=== PATIENT | male | born 1995 | race Caucasian/White ===

== ENCOUNTER 2021-10-10 12:52 | Emergency (ER) | payer BC, SELFPAY ==
--- NOTE | ~2021-10-10 | XR_ITS ---
XR chest 2V DATE: 10/10/2021 14:28 INDICATION: Weakness. Medical clearance. TECHNIQUE: 2 views COMPARISON: None FINDINGS: Normal heart size. No hilar or mediastinal enlargement. There is old pulmonary granulomatou s disease. No pulmonary infiltrate or consolidation, pleural effusion or pulmonary vascular congestio n or pneumothorax. Included skeletal structures are unremarkable. IMPRESSION: No active cardiopulmonary disease Reviewed, dictated and finalized at location A. T TIME NANNY
[2021-10-10 13:40] VITALS: BP 138/86; PULSE 72; RESP 14; TEMP 36.7; O2SAT 100
--- NOTE | 2021-10-10 13:49 | ED.PSYCH ---
HPI - Psych General Chief Complaint: Psychiatric Symptoms Stated Complaint: Mental Health Time Seen by Provider: 10/10/21 13:55 Source: patient History of Present Illness HPI Narrative: patient presents with some sensation of status depression is having difficulty at at home has had suicidal ideations in the past currently not suicidal not homicidal. Mental health advised patient to come to the ER to be evaluated, currently there is no chest pain no shortness of breath no nausea vomiting no abdominal pain no flank pain no fever or chills. complaint: suicidal ideation Onset (ago): day(s) Duration: constant History of same: Yes Relieving factors: none Exacerbating factors: none Context: recent alcohol abuse Associated psychiatric symptoms: depression and suicidal ideation Associated symptoms: denies other symptoms Related Data Home Medications Medication Instructions Recorded Confirmed No Home Medications 10/10/21 10/10/21 Allergies Allergy/AdvReac Type Severity Reaction Status Date / Time No Known Allergies Allergy Verified 10/10/21 14:13 Review of Systems Review of Systems: All systems reviewed & are unremarkable except as noted in HPI and below PMFSH Past Medical History Medical History Depression Social History Social History Substance use type: does not use Exam Const: General: healthy appearing, no acute distress and alert Orientation/consciousness: patient oriented x3 Limitations: altered mental status HENMT: Head: normal to inspection Eyes: Conjunctivae: conjunctivae normal Pupils: Equal, round and reactive pupils present Direct Ophthalmoscopy: no photophobia Neck: Neck: normal visual inspection, no lymphadenopathy and no meningeal signs Chest: Chest palpation & inspection: normal inspection of the chest Resp: Effort & Inspection: normal respiratory effort Auscultation: clear to auscultation bilaterally Cardio: Rate: regular rate Rhythm: regular rhythm GI: GI Palp: Yes Soft to palpation Urinary Catheter: Urinary Catheter: patent and draining Back/Spine/Pelvis: Back: no CVA tenderness Skin: General skin exam: normal color Rashes: no rashes Neuro: General: patient oriented x3, moves all extremities, no meningeal signs, no focal motor deficits and CN's II-XI intact bilaterally Extrem: General: normal to inspection and no pedal edema Psych: Appearance: grossly normal Affect: Sad affect present Attitude: cooperative Thought content: Yes Depressive thoughts present Course Course Emergency Course: EKG labs and urinalysis reviewed with patient, patient evaluated by mental health worker. mental health evaluation, patient to be transferred to [facility] for further evaluation and treatment. Critical Care Time Critical Care Time Critical Care Time: No Discharge Plan Discharge Clinical Impression: Suicidal ideations Depression Qualifiers: Depression Type: major depressive disorder Major depression recurrence: recurrent Active/Remission status: currently active Major depression episode severity: severe Psychotic features: without psychotic features Qualified Code(s): F33.2 - Major depressive disorder, recurrent severe without psychotic features Patient Disposition: Psychiatric Hosp Condition: Stable Prescriptions: No Action No Home Medications RF: 0 Follow-up/Referrals: UNKNOWN,DOCTOR [Primary Care Provider] - Time of Disposition: 16:52
--- NOTE | 2021-10-10 13:50 | ECG_ITS ---
Measurements Intervals [place] Rate: 67 P: 69 WA: 153 QRS: 96 QRSD: 100 T: 6 QT: 386 QTc: 408 Interpretive Statements SINUS RHYTHM WITH MARKED SINUS ARRHYTHMIA RIGHT AXIS DEVIATION DELAYED PRECORDIAL R/S TRANSITION MINIMAL Q WAVES- INFERIOR LEADS BORDERLINE ST-T WAVE ABNORMALITY- INFERIOR LEADS BORDERLINE ECG Electronically Signed On 10-10-2021 14:17:39 APARTMENT LEASING AGENT by Raymond Silvestre D.O.
[2021-10-10 14:17] LABS: Basophils Absolute Auto 0.07 K/mm3 (0.00-0.10); Basophils Percent Auto 0.8 % (0.0-1.0); Eosinophils Absolute Auto 0.26 K/mm3 (0.02-0.50); Eosinophils Percent Auto 3.1 % (1.0-6.0); Hemoglobin 16.6 g/dL (14.0-18.0); Immature Granulocyte Absolute 0.01 K/mm3 (0.00-0.00); Immature Granulocyte Percent A 0.1 % (0.0-0.0); Lymphocytes Absolute Auto 2.05 K/mm3 (1.10-4.50); Lymphocytes Percent Auto 24.2 % (18.0-42.0); Mean Corpuscular HGB Conc 32.5 g/dL (32.0-36.0); Mean Corpuscular Hemoglobin 28.3 pg (27.0-31.0); Mean Corpuscular Volume 86.9 fL (78.0-102.0); Mean Platelet Volume 10.1 fl (8.7-11.0); Monocytes Absolute Auto 0.84 K/mm3 (0.10-0.90); Monocytes Percent Auto 9.9 % (2.0-11.0); Neutrophils Absolute Auto 5.2 K/mm3 (1.7-7.2); Neutrophils Percent Auto 61.9 % (50.0-70.0); Platelet Count Result 262 K/mm3 (150-420); Red Blood Count 5.87 M/mm3 (4.70-6.10); Red Cell Distribution Width 13.8 % (11.6-14.4); White Blood Count 8.5 K/mm3 (4.8-10.8)
[2021-10-10 14:21] LABS: Appearance Urine Clear (Clear); Bilirubin Urine Negative (Negative); Color Urine Yellow (Yellow); Glucose Urine UA Negative (Negative); Ketones Urine Trace (Negative); Leukocyte Esterase Ur Negative (Negative); Nitrate Urine Negative (Negative); Protein Urine Negative (Negative); Specific Grav Ur >= 1.030 (1.010-1.020); Urobilinogen Urine 0.2 mg/dL (0.2-1.0); pH Urine 5.5 (5.0-8.0)
[2021-10-10 14:27] LABS: Amphetamine Screen Urine Negative (Negative); Barbiturate Screen Urine Negative (Negative); Benzodiazepines Screen Urine Negative (Negative); Cannabinoid Screen Urine Positive (Negative); Cocaine Screen Urine Negative (Negative); Methadone Screen Urine Negative (Negative); Opiate Screen Urine Negative (Negative); Phencyclidine Screen Urine Negative (Negative)
[2021-10-10 14:29] LABS: Add Urine Microscopic? YES; Blood Urine Trace-lysed (Negative)
[2021-10-10 14:30] LABS: Bacteria Urine Trace /hpf; Mucus Urine Moderate /lpf; Other Sediment Urine Spermatazoa /hpf; RBC Urine None seen /hpf (0-2); Squamous Epithelial Cell Urine Rare /hpf (Few); WBC Urine None seen /hpf (0-3)
[2021-10-10 14:45] LABS: Alanine Aminotransferase 36 U/L (16-63); Albumin Level 4.3 g/dL (3.4-5.0); Alkaline Phosphatase 74 U/L (46-116); Anion Gap 14 mmol/L (8-16); Aspartate Amino Transferase 27 U/L (15-37); Bilirubin,Total 0.6 mg/dL (0.00-1.00); Blood Urea Nitrogen 18 mg/dL (7-18); Calcium 9.9 mg/dL (8.5-10.1); Carbon Dioxide 27 mmol/L (21-32); Chloride 101 mmol/L (98-108); Estimated Glomerular Filt Rate > 60; Glucose 103 mg/dL (70-99); Osmolality Calculated 295 mOsm/kg (285-295); Potassium 3.5 mmol/L (3.5-5.1); Salicylate 0.6 mg/dL (2.8-20.0); Sodium 142 mmol/L (136-145); Thyroid Stimulating Hormone 3.73 uIU/mL (0.36-3.74); Total Protein 7.8 g/dL (6.4-8.2)
--- NOTE | 2021-10-10 14:46 | PC.NURSE ---
1415 MOTHER AT BEDSIDE. PT HAS BEEN CHANGED INTO SCRUBS WITH [employer] SECURED. [address] IN WITH PT AT THIS TIME. CAMERA ON AT THE NURSING STATION.
[2021-10-10 14:49] LABS: Acetaminophen < 2 ug/mL (10-30); Ethanol < 3 mg/dL (0-6)
[2021-10-10 14:54] LABS: SARS-CoV-2 RNA PCR Negative (Negative)
--- NOTE | 2021-10-10 16:21 | PC.NURSE ---
report given to nurse neal at [facility] . pt resting quietly. awaiting return call from [facility] outpatient program coordinator.
[2021-10-10 16:59] VITALS: BP 118/62; PULSE 71; RESP 14; TEMP 36.5; O2SAT 97
== END 2021-10-10 17:20 ==
PROVIDERS: Emergency Provider Emergency Medicine
DX: R45.851 Suicidal ideations (principal); F33.2 Major depressive disorder, recurrent severe without psychotic features
CPT/HCPCS: 36415; 71046; 80053; 80307; 81001; 84443; 85025; 93005; 99285; C9803; U0003; U0005

== ENCOUNTER 2022-01-27 16:04 | Emergency (ER) | payer BC, SELFPAY ==
--- NOTE | ~2022-01-27 | XR_ITS ---
EXAMINATION: XR chest 1V portable 01/27/2022 16:51 INDICATION: Fever and body aches PROCEDURE: AP portable chest COMPARISON: 10/10/2021 FINDINGS: The lungs are clear. The cardiomediastinal silhouette is within normal limits. There are no pleural effusions. There is no pneumothorax suspected. There are calcified granulomas of the vinny gs. IMPRESSION: 1: NO ACUTE CARDIOPULMONARY DISEASE. Reviewed, dictated and finalized at location A.
[2022-01-27 16:10] VITALS: BP 140/81; PULSE 114; RESP 16; TEMP 37.5; O2SAT 94
[2022-01-27 16:47] LABS: Hematocrit 47.7 % (40.0-54.0); Hemoglobin 15.9 g/dL (14.0-18.0); Mean Corpuscular HGB Conc 33.3 g/dL (32.0-36.0); Mean Platelet Volume 10.3 fl (8.7-11.0); Platelet Count Result 251 K/mm3 (150-420); Red Blood Count 5.48 M/mm3 (4.70-6.10); Red Cell Distribution Width 15.1 % (11.6-14.4)
[2022-01-27 16:49] LABS: White Blood Count 20.5 K/mm3 (4.8-10.8)
--- NOTE | 2022-01-27 16:59 | WPDEDEXPGENP ---
HPI - General Ped General Chief complaint: Fever Stated complaint: high fever 103.4 History of Present Illness HPI narrative: Dann is a previously healthy 26M that presented to the ED with a fever, body aches and fatigue. It started this morning and became worse. He has had a few episodes of non-bloody vomiting as well. He has also had a cough but no SOB. Of note he was on vacation in [place] last weekend and drank ethanol excessively (15-18 shots per day). Related Data Home Medications Medication Instructions Recorded Confirmed albuterol 90 mcg/actuation aerosol 90 mcg inhalation Q6-8H 01/27/22 01/27/22 inhaler Allergies Allergy/AdvReac Type Severity Reaction Status Date / Time No Known Allergies Allergy Verified 01/27/22 16:20 Pediatric Review of Systems Constitutional: Reports fever and chills Eyes: Reports as per HPI ENT: Reports as per HPI Cardiovascular: Denies chest pain or palpitations Respiratory: Reports cough; Denies sputum production Gastrointestinal: Reports nausea and vomiting Genitourinary: Denies dysuria Musculoskeletal: Reports as per HPI Integumentary: Reports as per HPI Neurological: Reports as per HPI Psychiatric: Reports change in energy level Endocrine: Reports fatigue PMFSH Past Medical History Medical History Depression Social History Social History Substance use type: does not use Pediatric Exam General: General appearance: well-appearing, active and well-nourished Head: Head exam: normocephalic, atraumatic and normal inspection Eye: Eye exam: Present normal appearance, PERRL and EOMI ENT: ENT exam: normal exam and mucous membranes dry Neck: Neck exam: Present normal inspection Respiratory: Respiratory exam: Present normal lung sounds bilaterally; Absent respiratory distress or wheezes Cardiovascular: Cardiovascular exam: Present regular rate and normal rhythm; Absent bradycardia Abdominal Exam: Abdominal exam: Present soft; Absent distention or tenderness Extremities Exam: Extremities exam: Present normal inspection Neurological Exam: Neurological exam: Present alert, oriented X3 and CN II-XII intact Course Course Emergency Course: Ordered fluids, labs, CXR and UA. EXAMINATION: XR chest 1V portable 01/27/2022 16:51 INDICATION: Fever and body aches PROCEDURE:? AP portable chest COMPARISON: 10/10/2021 FINDINGS: The lungs are clear.? The cardiomediastinal silhouette is within normal limits.? There are no pleural effusions.? There is no pneumothorax suspected.? There are calcified granulomas of the lungs. IMPRESSION: 1:? NO ACUTE CARDIOPULMONARY DISEASE. Labs showed an elevated white count but were otherwise unremarkable. UA and CXR unremarkable for infection. DDx includes a viral syndrome vs heat exhaustion vs dehydration or all 3 from drinking in the sun all weekend. Vital Signs Vital signs: Vital Signs Temperature 99.5 F 01/27/22 16:10 Pulse Rate 114 H 01/27/22 16:10 Respiratory Rate 16 01/27/22 16:10 Blood Pressure 140/81 01/27/22 16:10 Pulse Oximetry 94 01/27/22 16:10 Oxygen Delivery Room Air 01/27/22 16:10 Temperature 99.9 F H 01/27/22 17:40 Pulse Rate 85 01/27/22 17:40 Respiratory Rate 16 01/27/22 17:40 Blood Pressure 136/66 01/27/22 17:40 Pulse Oximetry 99 01/27/22 17:40 Oxygen Delivery Room Air 01/27/22 17:40 Medical Decision Making Vital Signs Vital Signs: Vital Signs Temperature 99.5 F 01/27/22 16:10 Pulse Rate 114 H 01/27/22 16:10 Respiratory Rate 16 01/27/22 16:10 Blood Pressure 140/81 01/27/22 16:10 Pulse Oximetry 94 01/27/22 16:10 Oxygen Delivery Room Air 01/27/22 16:10 Temperature 99.9 F H 01/27/22 17:40 Pulse Rate 85 01/27/22 17:40 Respiratory Rate 16 01/27/22 17:40 Blood Pressure 136/66 01/27/22 17:40 Pulse Oximetry 99
[2022-01-27] MEDS: SODIUM CHLORIDE 0.9% IV 1,000 ML 999 ML IV CONT (17:02)
[2022-01-27 17:03] LABS: Alanine Aminotransferase 59 U/L (16-63); Albumin Level 3.9 g/dL (3.4-5.0); Alkaline Phosphatase 60 U/L (46-116); Anion Gap 9 mmol/L (8-16); Aspartate Amino Transferase 55 U/L (15-37); Bilirubin,Total 0.5 mg/dL (0.00-1.00); Blood Urea Nitrogen 10 mg/dL (7-18); Calcium 9.3 mg/dL (8.5-10.1); Carbon Dioxide 27 mmol/L (21-32); Chloride 101 mmol/L (98-108); Estimated Glomerular Filt Rate > 60; Glucose 112 mg/dL (70-99); Osmolality Calculated 284 mOsm/kg (285-295); Potassium 3.9 mmol/L (3.5-5.1); Sodium 137 mmol/L (136-145); Total Protein 7.7 g/dL (6.4-8.2)
[2022-01-27 17:11] VITALS: BP 132/77; PULSE 108; RESP 16; TEMP 37.3; O2SAT 97
[2022-01-27 17:21] LABS: Influenza A QL RT-PCR Negative (Negative); Influenza B QL RT-PCR Negative (Negative); SARS-CoV-2 RNA PCR Negative (Negative)
[2022-01-27 17:30] LABS: Band Neutrophils Percent 0 % (0-6); Lymphocytes Absolute Manual 0.82 K/mm3 (1.1-4.5); Lymphocytes Percent Manual 4 % (18-44); Monocytes Absolute Manual 1.02 K/mm3 (0.1-0.90); Monocytes Percent Manual 5 % (3-9); Neutrophils Absolute Manual 18.65 K/mm3 (1.3-6.7); Neutrophils Percent Manual 91 % (46-73); Platelet Estimate Adequate (Adequate); Total Cells Counted 100
[2022-01-27 17:33] LABS: Add Urine Microscopic? YES; Appearance Urine Clear (Clear); Bilirubin Urine Negative (Negative); Blood Urine Negative (Negative); Color Urine Yellow (Yellow); Glucose Urine UA Negative (Negative); Ketones Urine Negative (Negative); Leukocyte Esterase Ur Negative (Negative); Nitrate Urine Negative (Negative); Protein Urine Trace (Negative); Specific Grav Ur 1.015 (1.010-1.020); pH Urine 8.5 (5.0-8.0)
[2022-01-27 17:38] LABS: RBC Urine None seen /hpf (0-2); WBC Urine None seen /hpf (0-3)
[2022-01-27 17:39] LABS: Bacteria Urine Trace /hpf
[2022-01-27 17:40] VITALS: BP 136/66; PULSE 85; RESP 16; TEMP 37.7; O2SAT 99
== END 2022-01-27 18:05 | disposition home or self-care (01) ==
PROVIDERS: Emergency Provider Family Medicine
DX: B34.9 Viral infection, unspecified (principal); Z20.822 Contact with and (suspected) exposure to COVID-19
CPT/HCPCS: 36415; 71045; 80053; 81001; 85025; 87502; 96360; 99283; C9803; J7030; U0003; U0005

== ENCOUNTER 2023-04-03 10:53 | Emergency (ER) | payer BC, SELFPAY ==
--- NOTE | ~2023-04-03 | XR_ITS ---
EXAMINATION: XR chest 2V DATE: 04/03/2023 11:17 INDICATION: Shortness of breath. TECHNIQUE: Frontal and lateral views of the chest were obtained. COMPARISON: Chest single view 01/27/2022 FINDINGS: A calcified right lung nodule and calcified right hilar lymph nodes are consistent with old granulomatous disease. No pleural effusion or pneumothorax. The heart size is normal. IMPRESSION: 1. No acute cardiopulmonary disease. Reviewed, dictated and finalized at location B.
[2023-04-03 10:56] VITALS: BP 148/92; PULSE 94; RESP 20; TEMP 37.3; O2SAT 98
--- NOTE | 2023-04-03 11:02 | ED.URI ---
HPI - URI/Sore Throat General Chief Complaint: Upper Respiratory Infection Stated Complaint: congestion Time Seen by Provider: 04/03/23 10:54 Source: patient Mode of arrival: ambulatory Limitations: no limitations History of Present Illness HPI Narrative: patient is a 27-year-old male with shortness of breath. Patient has asthma but does not use medication for the past 10 years. No chest pain. He works around a lot of dust and inhalants. MD elicited complaint: fever Pertinent past history: asthma Onset (ago): week(s) (1) Consistency: constant Severity: moderate Able to tolerate fluids by mouth: Yes Exacerbating factors: exertion Relieving factors: nothing Associated symptoms: denies other symptoms Treatments prior to arrival: none Related Data Allergies Allergy/AdvReac Type Severity Reaction Status Date / Time No Known Allergies Allergy Verified 04/03/23 10:58 Review of Systems Review of Systems: All systems reviewed & are unremarkable except as noted in HPI and below Constitutional: Constitutional: Reports no additional constitutional complaints Eyes: Eyes: Reports no additional eye complaints ENT: Reports system reviewed and no additional complaints, except as documented Cardiovascular: Cardiovascular: Reports no additional cardiovascular complaints Respiratory: Respiratory: Reports no additional respiratory complaints Gastrointestinal: Gastrointestinal: Reports no additional gastrointestinal complaints Genitourinary: Genitourinary: Reports no additional male genitourinary complaints Musculoskeletal: Musculoskeletal: Reports no additional musculoskeletal complaints Integumentary/Breasts: Skin/Breast: Reports system reviewed and no additional complaints, except as docu Neurologic: Reports system reviewed and no additional complaints, except as documented Psychiatric: Psychiatric: Reports no additional psychiatric complaints Endocrine: Endocrine: Reports no additional endocrine complaints Hematologic/Lymphatic: Hematologic/Lymphatic: Reports no additional hematologic/lymphatic complaints Allergic/Immunologic: Allergic/Immunologic: Reports no additional allergic/immunologic complaints PMFSH Past Medical History Medical History Depression Social History Social History Substance use type: does not use Exam Const: General: healthy appearing and no acute distress Nutritional Appearance: well nourished Orientation/consciousness: patient oriented x3 HENMT: Head: normal to inspection Ears: external ears normal Eyes: Conjunctivae: conjunctivae normal Pupils: Equal, round and reactive pupils present EOM: EOMs intact bilaterally Neck: Neck: normal visual inspection Chest: Chest palpation & inspection: normal inspection of the chest Resp: Effort & Inspection: normal respiratory effort Cardio: Rate: regular rate Rhythm: regular rhythm Heart sounds: no murmurs GI: Inspection: non-distended GI Palp: Yes Soft to palpation and No Tenderness to palpation present (GI) Auscultation: normal bowel sounds : General: Yes bladder normal to palpation Skin: General skin exam: normal color Rashes: no rashes Neuro: General: patient oriented x3, moves all extremities and no meningeal signs Extrem: General: normal to inspection Psych: Mental Status: mental status grossly normal Course Vital Signs Vital signs: Vital Signs Temperature 37.3 C 04/03/23 10:56 Pulse Rate 94 04/03/23 10:56 Respiratory Rate 20 04/03/23 10:56 Blood Pressure 148/92 H 04/03/23 10:56 Pulse Oximetry 98 04/03/23 10:56 Oxygen Delivery Room Air 04/03/23 10:56 Temperature 37.3 C 04/03/23 10:56 Pulse Rate 94 04/03/23 11:32 Respiratory Rate 18 04/03/23 11:32 Blood Pressure 148/92 H 04/03/23 10:56 Pulse Oximetry 98 04/03/23 11:32 Oxygen Delivery Room Air 04/03/23 10:56
--- NOTE | 2023-04-03 11:05 | PC.NURSE ---
PCR covid test taken to lab
[2023-04-03] MEDS: IPRATROPIUM 0.5 MG/ALBUTEROL SULFATE 2.5 MG AMPUL.NEB 3 ML INHALATION (11:17)
[2023-04-03 11:19] VITALS: PULSE 94; RESP 18; O2SAT 98
[2023-04-03] MEDS: methylPREDNISolone SOD SUCC 125 MG VIAL IM (11:29)
[2023-04-03 11:32] VITALS: PULSE 94; RESP 18; O2SAT 98
[2023-04-03 11:59] LABS: Influenza A QL RT-PCR Negative (Negative); Influenza B QL RT-PCR Negative (Negative); SARS-CoV-2 RNA PCR Negative (Negative)
[2023-04-03 12:00] LABS: RSV RNA, RT-PCR Negative (Negative)
[2023-04-03 12:13] VITALS: BP 113/79; PULSE 83; RESP 20; TEMP 37.2; O2SAT 99
== END 2023-04-03 12:15 | disposition home or self-care (01) ==
PROVIDERS: Emergency Provider Emergency Medicine
DX: J45.901 Unspecified asthma with (acute) exacerbation (principal); Z20.822 Contact with and (suspected) exposure to COVID-19
CPT/HCPCS: 71046; 87637; 94640; 96372; 99283; J2930